=== PATIENT | female | born 1950 | race Caucasian/White ===

== ENCOUNTER → 2018-08-26 | Outpatient (CLI) | payer MEDICARE ==
[~2018-08-26] MED LIST: FENTANYL PF 100 MCG/2ML ONE; FLUMAZENIL 0.1 MG/1 ML, 5ML ONE; MIDAZOLAM 1 MG/ML, 5ML ONE; NALOXONE 1 MG/ML, 2ML ONE
== END | disposition home or self-care (01) ==
LOC: MERGE 11:09 → RAD 11:09
PROVIDERS: ATTEND Family Medicine
DX: M41.86 Other forms of scoliosis, lumbar region (principal); M51.36 Other intervertebral disc degeneration, lumbar region; M54.5 Low back pain
CPT/HCPCS: 72148; 99156; 99157; J2250; J3010; J2310

== ENCOUNTER 2019-12-26 15:47 | Emergency (ER) | payer MEDICARE, MEDICAID ==
[~2019-12-26] VITALS: Ht 167.6 cm; Wt 72.3 kg
[~2019-12-26 15:47] MED LIST changes: +ATOR-2 PO; -FENTANYL PF 100 MCG/2ML ONE; -FLUMAZENIL 0.1 MG/1 ML, 5ML ONE; +LISI-167 PO; -MIDAZOLAM 1 MG/ML, 5ML ONE; -NALOXONE 1 MG/ML, 2ML ONE; +TIZANIDINE; +TRAZ50TA66 PO
[2019-12-26] MEDS ORDERED: ASPIRIN 81 MG TABLET CHEW ONE (16:19)
[2019-12-26] MEDS ORDERED: ASPIRIN 81 MG TABLET CHEW PO ONE (16:30)
[2019-12-26 16:45] LABS: BASOPHILS # (AUTO) 0.04 x10^3/uL (0-0.1); BASOPHILS % (AUTO) 1 % (0-1); EOSINOPHILS # (AUTO) 0.25 x10^3/uL (0-0.4); EOSINOPHILS % (AUTO) 5 % (1-7); LYMPHOCYTES # (AUTO) 2.45 x10^3/uL (1-3.4); LYMPHOCYTES % (AUTO) 46 % (22-44); MD NO; MEAN CORPUSCULAR HEMOGLOBIN 31.3 pg (27.0-34.8); MEAN PLATELET VOLUME 7.3 fL (7.4-10.4); MONOCYTES # (AUTO) 0.39 x10^3/uL (0.2-0.8); MONOCYTES % (AUTO) 7 % (2-9); NEUTROPHILS # (AUTO) 2.17 x10^3/uL (1.8-6.8); NEUTROPHILS % (AUTO) 41 % (42-75); PLATELET COUNT 186 x10^3/uL (130-400); RED BLOOD COUNT 4.37 x10^6/uL (3.82-5.3); RED CELL DISTRIBUTION WIDTH 12.7 % (9.6-15.2)
[2019-12-26 16:54] LABS: ALBUMIN 3.7 g/dL (3.4-5.0); ANION GAP 4 mmol/L (5-15); CALCIUM 8.9 mg/dL (8.5-10.1); CHLORIDE 108 mmol/L (98-107); CREATININE 0.68 mg/dL (0.55-1.02)
[2019-12-26 16:57] LABS: TROPONIN I < 0.015 ng/mL (0.000-0.045)
[2019-12-26] MEDS ORDERED: MAALOX/HYOSCYAMINE/LIDOCAINE 45 ML BTL PO ONE (17:00)
[2019-12-26] MEDS ORDERED: MAALOX/HYOSCYAMINE/LIDOCAINE 45 ML BTL ONE (17:05)
[2019-12-26 17:07] VITALS: BP 132/91
--- NOTE | 2019-12-26 17:07 | NUR ---
pt resting in bed, medicated as ordered.
--- NOTE | 2019-12-26 17:37 | NUR ---
ERMD AT BEDSIDE TO DISCUSS POC. DISCHARGE INSTRUCTIONS REVIEWED.
== END 2019-12-26 18:13 | disposition home or self-care (01) ==
LOC: ED 18:11
DX: K21.0 Gastro-esophageal reflux disease with esophagitis (principal); R07.89 Other chest pain; I10 Essential (primary) hypertension; R42 Dizziness and giddiness; R51 Headache; R94.31 Abnormal electrocardiogram [ECG] [EKG]
CPT/HCPCS: 36415; 71045; 80048; 82040; 84484; 85025; 93005; 99285

== ENCOUNTER → 2020-01-12 | Outpatient (CLI) | payer MEDICARE, MEDICAID | END | disposition home or self-care (01) | LOC: CFH 09:40 | PROVIDERS: ATTEND Family Medicine | DX: R92.2 Inconclusive mammogram (principal) | CPT/HCPCS: 76641 ==

== ENCOUNTER → 2020-08-26 | Outpatient (CLI) | payer MEDICARE, MEDICAID ==
[~2020-08-26] MED LIST changes: +ALBU8.5H8 INH; +ATOR20TA37 PO; +FLUT9.9S NAS; +GABA-826 PO; +IBUP-1223 PO; +LORA-702 PO; +MULT-658 PO; +NORT25CA78 PO; +PANT20TA4 PO; +VIT1CAPS11 PO
[2020-08-26 09:40] LABS: CALCIUM 9.4 mg/dL (8.5-10.1)
[2020-08-26 09:43] LABS: ALANINE AMINOTRANSFERASE 41 U/L (12-78); ALKALINE PHOSPHATASE 47 U/L (45-117); BILIRUBIN,TOTAL 1.3 mg/dL (0.2-1.0); CREATININE 0.75 mg/dL (0.55-1.02); TOTAL PROTEIN 7.1 g/dL (6.4-8.2)
[2020-08-26 09:58] LABS: ANION GAP 5 mmol/L (5-15); CHLORIDE 108 mmol/L (98-107)
== END | disposition home or self-care (01) ==
LOC: STAR 07:52
PROVIDERS: ATTEND Otolaryngology
DX: Z01.812 Encounter for preprocedural laboratory examination (principal); Z20.822 Contact with and (suspected) exposure to COVID-19; J31.0 Chronic rhinitis; J34.2 Deviated nasal septum
CPT/HCPCS: 36415; 80053; 93005; U0003

== ENCOUNTER 2020-08-30 06:44 | Day surgery (SDC) | payer MEDICARE, MEDICAID ==
[2020-08-26 08:35] VITALS: BP 137/83
[~2020-08-30] VITALS: Ht 167.6 cm; Wt 72.3 kg
[2020-08-30] MEDS ORDERED: CHLORHEXIDINE 15 ML UDC MM ONE (07:30)
[2020-08-30] MEDS ORDERED: LACTATED RINGERS 1,000 ML IV SCH (07:30)
[2020-08-30 07:37] VITALS: BP 137/83
[2020-08-30] MEDS ORDERED: EPINEPHRINE TOPICAL SOLN 1 MG/ML, 30ML ONE (08:48)
[2020-08-30] MEDS ORDERED: LIDOCAINE/PF 1%-EPI 1:200K, 30 ML ONE (08:48)
[2020-08-30] MEDS ORDERED: BACITRACIN OINT 500U/GM, 15 GM ONE (08:48)
[2020-08-30] MEDS ORDERED: OXYMETAZOLINE NASAL SPRAY 0.05%,30ML ONE (08:49)
[2020-08-30] MEDS ORDERED: BACITRACIN 50,000 UNIT ONE (08:49)
[2020-08-30] MEDS ORDERED: FLUORESCEIN SODIUM 500 MG/5 ML ONE (08:49)
[2020-08-30] MEDS ORDERED: LIDOCAINE/PF 1%, 30ML ONE (08:49)
[2020-08-30] MEDS ORDERED: EPINEPHRINE 1 MG/ML, 1ML ONE (08:50)
[2020-08-30] MEDS ORDERED: FENTANYL PF 250 MCG/5ML ONE (08:58)
[2020-08-30] MEDS ORDERED: MIDAZOLAM 1 MG/ML, 2ML ONE (08:58)
[2020-08-30] MEDS ORDERED: LIDOCAINE 1%-EPI 1:100K, 30ML INFIL ONE (09:53)
[2020-08-30] MEDS ORDERED: NEOSTIGMINE 1 MG/ML, 10ML ONE (10:51)
[2020-08-30] MEDS ORDERED: GLYCOPYRROLATE 0.2MG/1ML, 5ML ONE (10:51)
[2020-08-30] MEDS ORDERED: PROPOFOL 10 MG/ML, 20ML ONE (10:51)
[2020-08-30] MEDS ORDERED: ONDANSETRON 2MG/ML, 2ML ONE (10:51)
[2020-08-30] MEDS ORDERED: ROCURONIUM 10MG/ML,5ML ONE (10:51)
[2020-08-30] MEDS ORDERED: CEFAZOLIN 1,000 MG ONE (10:51)
[2020-08-30] MEDS ORDERED: DEXAMETHASONE 4 MG/ML, 1ML ONE (10:51)
[2020-08-30] MEDS ORDERED: SUCCINYLCHOLINE 20 MG/ML, 10ML ONE (10:51)
[2020-08-30] MEDS ORDERED: HYDROmorphone 1 MG/ML, 1ML INJ IVPush PRN (11:00)
[2020-08-30] MEDS ORDERED: LABETALOL 5MG/ML, 20ML IV PRN (11:00)
[2020-08-30] MEDS ORDERED: hydrALAzine 20 MG/ML, 1ML IV PRN (11:00)
[2020-08-30] MEDS ORDERED: MEPERIDINE/PF 25MG/0.5ML IVPush PRN (11:00)
[2020-08-30] MEDS ORDERED: HYDROcodone/APAP 7.5-325MG/15ML UDC PO PRN (11:00)
[2020-08-30] MEDS ORDERED: DIPHENHYDRAMINE 50 MG/ML, 1ML IVPush PRN (11:00)
[2020-08-30] MEDS ORDERED: FENTANYL PF 100 MCG/2ML IV PRN (11:00)
[2020-08-30] MEDS ORDERED: PROMETHAZINE 25 MG/ML, 1ML IVPush PRN (11:00)
[2020-08-30] MEDS ORDERED: HALOPERIDOL 5 MG/ML IV PRN (11:00)
== END 2020-08-30 13:00 | disposition home or self-care (01) ==
LOC: OUT 06:44
PROVIDERS: ATTEND Otolaryngology
DX: J34.2 Deviated nasal septum (principal); J32.0 Chronic maxillary sinusitis; J32.2 Chronic ethmoidal sinusitis; J32.1 Chronic frontal sinusitis; J33.8 Other polyp of sinus; B47.9 Mycetoma, unspecified; J45.909 Unspecified asthma, uncomplicated; K21.9 Gastro-esophageal reflux disease without esophagitis; I10 Essential (primary) hypertension; E78.5 Hyperlipidemia, unspecified; G43.909 Migraine, unspecified, not intractable, without status migrainosus; M19.90 Unspecified osteoarthritis, unspecified site; Z79.899 Other long term (current) drug therapy; Z91.030 Bee allergy status; Z82.49 Family history of ischemic heart disease and other diseases of the circulatory system; Z82.3 Family history of stroke
CPT/HCPCS: 30520; 31253; 31257; 31267; 87015; 87070; 87075; 87077; 87102; 87116; 87186; 87205; 87206; 88304; 88305; 88311; J0171; J0330; J0690; J1100; J2250; J2405; J2704; J2710; J3010; J7120

== ENCOUNTER 2020-09-06 12:55 | Day surgery (SDC) | payer MEDICARE, MEDICAID ==
[~2020-09-06] VITALS: Ht 167.6 cm; Wt 71.7 kg
[~2020-09-06 12:55] MED LIST changes: +OXYMETAZOLINE NASAL SPRAY 0.05%,30ML ONE
[2020-09-06 13:46] VITALS: BP 143/84
== END 2020-09-06 16:00 | disposition home or self-care (01) ==
LOC: OUT 12:55
PROVIDERS: ATTEND Otolaryngology
DX: J32.9 Chronic sinusitis, unspecified (principal); J33.8 Other polyp of sinus; B48.8 Other specified mycoses; Z20.822 Contact with and (suspected) exposure to COVID-19; Z91.030 Bee allergy status
CPT/HCPCS: 87635

== ENCOUNTER 2021-02-06 20:15 | Emergency (ER) | payer MEDICAID, MEDICARE ==
[~2021-02-06] VITALS: Ht 167.6 cm; Wt 66.4 kg
[~2021-02-06 20:15] MED LIST changes: -OXYMETAZOLINE NASAL SPRAY 0.05%,30ML ONE
[2021-02-06 20:52] VITALS: BP 135/85
== END 2021-02-06 21:29 | disposition home or self-care (01) ==
LOC: ED 20:30
DX: J06.9 Acute upper respiratory infection, unspecified (principal); Z20.822 Contact with and (suspected) exposure to COVID-19; I10 Essential (primary) hypertension
CPT/HCPCS: 99283; U0003; U0005